=== PATIENT | female | born 1980 | race Caucasian/White ===

== ENCOUNTER → 2022-04-17 16:08 | Outpatient (CLI) | payer OTHER, SELFPAY ==
[2022-04-17 17:54] LABS: Basophils # 0.1 K/mm3 (0-0.2); Basophils % 1.1 % (0.1-2.0); Eosinophils # 0.1 K/mm3 (0.0-0.4); Eosinophils % 1.7 % (0.1-12.0); Hematocrit 44.4 % (37.0-47.0); Hemoglobin 14.5 g/dL (12.2-16.2); Lymphocytes # 2.6 K/mm3 (0.7-4.5); Mean Corpuscular HGB Conc 32.6 g/dL (31.8-35.4); Mean Corpuscular Hemoglobin 30.6 pg (27.0-31.2); Mean Corpuscular Volume 93.8 fl (81-99); Mean Platelet Volume 10.9 fl (7.4-10.4); Monocytes # 0.4 K/mm3 (0.1-1.0); Monocytes % 4.4 % (1.7-9.3); Neutrophils # 5.1 K/mm3 (1.8-7.8); Neutrophils % 61.8 % (37.0-80.0); Platelet Count 197 K/mm3 (142-424); Red Blood Count 4.73 M/mm3 (4.20-5.40); Red Cell Distribution Width 12.8 % (11.5-17.5); White Blood Count 8.2 K/mm3 (4.8-10.8)
[2022-04-17 18:24] LABS: Alanine Aminotransferase 18 U/L (12-78); Albumin Level 4.5 g/dl (3.5-5.0); Albumin/Globulin Ratio 1.3 (1.1-1.8); Alkaline Phosphatase 98 U/L (38-126); Anion Gap 11.7 mEq/L (5-15); Aspartate Amino Transferase 26 U/L (14-36); Bilirubin,Total 0.4 mg/dl (0.2-1.3); Blood Urea Nitrogen 9 mg/dl (7-17); Calcium 9.4 mg/dl (8.4-10.2); Carbon Dioxide 29 mmol/L (22.0-30.0); Chloride 103 mmol/L (98-107); Chol/HDL Ratio 3.8 (1-3.5); Cholesterol 207 mg/dl (140-200); Estimated Glomerular Filt Rate 93 ml/min (>60); GFR (African American) 112 ML/MIN (>60); Globulin 3.4 g/dL (1.3-3.2); Glucose 83 mg/dl (74-100); HDL Cholesterol 54 mg/dl (40-60); Potassium 4.7 mmoL/L (3.5-5.1); Sodium 139 mmol/L (136-145); Total Protein,Serum 7.9 g/dl (6.3-8.2); Triglycerides 115 mg/dl (30-150); VLDL Cholesterol 23 mg/dL (0-40)
[2022-04-17 18:35] LABS: Direct LDL Cholesterol 111.31 mg/dL (100-129)
[2022-04-17 18:41] LABS: Free Thyroxine Index 2.9 ug/dL (5.93-13.13); T4 (Thyroxine) 9.2 ug/dl (5.53-11.0); Triiodothryronine (T3) Uptake 32 % (23.5-40.5)
[2022-04-17 18:55] LABS: Thyroid Stimulating Hormone 5.27 uIU/mL (0.465-4.68)
== END ==
PROVIDERS: PCP Family Medicine; Visit Provider Nurse Practitioner Obstetrics & Gynecology
DX: R53.83 Other fatigue (principal)
CPT/HCPCS: 36415; 80053; 80061; 84436; 84443; 84479; 85025

== ENCOUNTER → 2022-05-15 14:51 | Outpatient (CLI) | payer OTHER, SELFPAY ==
--- NOTE | 2022-05-15 14:51 | MM_ITS ---
PROCEDURE INFORMATION: Exam: MG Bilateral Screening 3D Mammography Exam date and time: 05/15/2022 2:44 PM Age: 41 years old Clinical indication: Screening examination TECHNIQUE: Imaging protocol: Bilateral Screening tomosynthesis and 2D mammography including computer-aided detection (CAD) when performed. COMPARISON: No relevant prior studies available. FINDINGS: MAMMOGRAPHY: Breast composition: There are scattered areas of fibroglandular density. Mass: 0.6 cm mass in the middle third of the right 12 o'clock axis. 0.8 cm mass immediately adjacent to a 0.4 cm mass. In the middle third of the right 12 o'clock axis Architectural distortion: None. Calcifications: No suspicious calcifications. Asymmetric density: None. Skin thickening: None. Axillary adenopathy: None. IMPRESSION: Patient to be recalled for right breast ultrasound for further evaluation of a 3 probably benign right breast masses ASSESSMENT: BI-RADS Category 0: Incomplete- Need Additional Imaging Evaluation and/or Prior Mammograms for Comparison
== END ==
PROVIDERS: PCP Family Medicine; Visit Provider Nurse Practitioner Obstetrics & Gynecology
DX: Z12.31 Encounter for screening mammogram for malignant neoplasm of breast (principal)
CPT/HCPCS: 77063; 77067

== ENCOUNTER → 2022-07-08 14:42 | Outpatient (CLI) | payer OTHER, SELFPAY ==
--- NOTE | 2022-07-08 14:45 | US_ITS ---
PROCEDURE INFORMATION: Exam: US Right Breast, Complete Exam date and time: 07/08/2022 2:49 PM Age: 41 years old Clinical indication: Patient recalled for further evaluation 3 right breast masses TECHNIQUE: Imaging protocol: Complete ultrasound of all four quadrants of the right breast and the retroareolar regions, including ultrasound of the axilla when performed. COMPARISON: MG MM DIG SCREENING MAMM BI W/CAD 05/15/2022 2:44 PM FINDINGS: Breast: Sonographic images of the right 12 o'clock axis 1 cm from the nipple demonstrates a lobulated hypoechoic solid mass measuring 0.8 x 0.5 x 0.5 cm in dimension. It is also possible with the sonographic findings reflect 2 immediately adjacent masses. This appears to most closely correspond to the 2 adjacent masses noted in the 12 o'clock axis. No other solid or cystic masses are noted in the right breast. No architectural distortion or acoustical shadowing. No axillary adenopathy. IMPRESSION: 1. Two immediately adjacent masses seen on mammography in the right upper breast corresponds to an indeterminate lobulated solid mass or perhaps 2 immediately adjacent hypoechoic masses on sonography. Ultrasound-guided core biopsy is recommended for further evaluation. 2. 0.6 cm mass in the middle third of the right 12 o'clock axis on mammography is not seen on sonography. If the biopsy of the larger mass is benign, a six-month follow-up diagnostic right mammogram is recommended to ensure stability of the remaining mass. If however the biopsy is atypical or malignant, stereotactic core biopsy of the second mass seen only on mammography would then be recommended. ASSESSMENT: BI-RADS Category 4: Suspicious
== END ==
PROVIDERS: PCP Family Medicine; Visit Provider Nurse Practitioner Obstetrics & Gynecology
DX: N63.10 Unspecified lump in the right breast, unspecified quadrant (principal); R92.8 Other abnormal and inconclusive findings on diagnostic imaging of breast
CPT/HCPCS: 76641

== ENCOUNTER → 2022-08-05 09:13 | Outpatient (CLI) | payer OTHER, SELFPAY ==
--- NOTE | 2022-08-05 | MM_ITS ---
FINAL REPORT CLINICAL HISTORY: post us bx, right breast nodule FINDINGS: MAMMOGRAM RIGHT TECHNIQUE: Standard digital 2-D views COMPARISON: 07-08-22 DENSITY: There are scattered areas of fibroglandular density FINDINGS: Nodule of interest is no longer evident following biopsy. A complex cyst is strongly suspected. There was no biopsy marker clip placed. Postbiopsy changes are noted. IMPRESSION: Nodule no longer evident following biopsy. Complex cyst suspected. RECOMMENDATION: Pending histopathology evaluation Authenticated and ERN
--- NOTE | 2022-08-05 09:14 | US_ITS ---
FINAL REPORT CLINICAL HISTORY: rt breast core bx -- dr johnson FINDINGS: ULTRASOUND-GUIDED RIGHT BREAST CORE BIOPSY TECHNIQUE: Limited images were obtained to localize region of interest. The right breast was prepped in a routine sterile fashion and locally anesthetized with 1% lidocaine. Standard written informed consent was obtained. A subcentimeter nodule was identified right breast at 12:00. The biopsy needle was positioned within the outer periphery of the lesion. A total of 2 passes were made with a 18 gauge core biopsy needle. After the initial 2 biopsies the nodule was no longer evident. A complex cyst is suspected. No biopsy marker clip was placed since the lesion was no longer evident. Postbiopsy mammogram showed resolution of nodule. Procedure was well tolerated . CONCLUSION: 1. Technically successful ultrasound guided core biopsy of right breast lesion as above. 2. Postbiopsy mammogram showed resolution of nodule 3. Features are most suggestive of complex cyst Authenticated and ERN
== END ==
PROVIDERS: PCP Family Medicine; Visit Provider Surgery
DX: N63.12 Unspecified lump in the right breast, upper inner quadrant (principal)
CPT/HCPCS: 19083; 77065